=== PATIENT | female | born 1995 | race Caucasian/White ===

== ENCOUNTER 2020-10-20 07:29 | Inpatient (IN) ==
[2020-10-20] MEDS ORDERED: OXYTOCIN 30 UNITS/500 ML BAG IV PRN ×2 (08:46)
--- NOTE | 2020-10-20 08:57 | History & Physical Report ---
Date of Service October 20, 2020 Assessment & Plan (1) Encounter for induction of labor: (2) Post-dates : admit, iv, labs. plan pitocin and arom when able. fhts categ 1. couple aware of plan and desire to proceed. Admission and Anticipated Discharge Date Admission Date: October 20, 2020 History of Present Illness Chief Complaint: induction Primary Care Provider: Kye Cardona 25yo at 40 5/7 wks ega for planned induction. Patient desires induction now. Apparently miller balloon was unable to be placed last pm but thought was cervix was stretched. Patient denies ctx, rom or vb. +FM. PNC c/b 1. prior concern for iugr, followup done at 24wks and aga PNL RH POS, RI, gbs neg OBH: gi GYNH: nl paps, no stds Allergies Allergy/AdvReac Type Severity Reaction Status Date / Time No Known Drug Allergies Allergy Uncoded 09/29/20 09:28 Home Medications Medication Instructions Recorded Confirmed Type albuterol sulfate 90 mcg/actuation 90 mcg INHALATION TID PRN gm 08/10/19 10/19/20 History aerosol inhaler prenat.vits,panfilo,yvo-nkud-mivmc 1 tab PO DAILY 02/26/20 10/20/20 History albuterol 3 mcg INHALATION TID 10/17/20 10/19/20 History ferrous sulfate [iron] 325 mg PO DAILY 10/20/20 10/20/20 History Patient History Medical History (Updated 10/20/20 @ 08:56 by Gay Mitchell MD, FACOG) Asthma Dysmenorrhea Encounter for anatomic survey Overactive bladder Varicella vaccine Surgical History H/O nasal septoplasty S/P tonsillectomy Family History Father Diabetes Mother Kidney disease Denies family history of Ovarian cancer Breast cancer Colorectal cancer Social History Smoking Status: Never smoker Second Hand Exposure: No; Hx Alcohol Use: No Hx Substance Use: No Preferred Language: Maltese Communication Ability: Effective Emergency Department Required: No Beliefs That Will Affect Care: None marital status: Single marital status details: Rafael Dunn (26) [phone] Current Living Situation: Significant Other Current Living Situation Comment: Lives with [place] current occupational status: employed current occupation: clinical coordinator at [employer] Other Information That Helps Us Care for You: No Feels Safe at Home: Yes Safety Concerns: Feels Safe At This Time Assistive Devices: None Review of Systems as per Subjective / HPI Physical Exam Constitutional: WD/WN, vitals as above Respiratory: normal respiratory effort, lungs clear to auscultation Cardiovascular: Rate/Rhythm: regular rate and regular rhythm Gastrointestinal (Abdomen): soft gravid nt Musculoskeletal: +1 edema nontender calves Neurologic: grossly normal Psychiatric: A+Ox3, euthymic affect Genitourinary: OB Exam Abdomen: + vertex and + estimated weight (7-8#) Manual OB Exam: + cervical dilation (2-3), + cervical effacement 80% and + station high OB Exam Monitor Tracing: + external FHT monitor used (135 mod variability), + external uterine monitor used (irreg with irritability), + category I and + normal FHT variability Results & Data ([facility]) Vital Signs (Past 12 Hours) Vital Signs Temp Pulse Resp BP 10/20/20 07:43 97.3 F L 101 H 20 127/79 10/20/20 07:38 101 H 127/79 Coding Level of Care Code None Diagnoses Encounter for induction of labor Z34.90 Post-dates O48.0
[2020-10-20] MEDS: LACTATED RINGER'S 1,000 ML IV PRN ×4 (08:59→20:47)
[2020-10-20 09:04] LABS: Hematocrit (blood only) 38.6 % (37-47); Hemoglobin 12.7 g/dL (12.0-16.0); Mean Corpuscular Hemoglobin 28.8 pg (25-34); Mean Corpuscular Hgb Conc 32.9 g/dL (32-36); Mean Corpuscular Volume 87.5 fL (80-100); Mean Platelet Volume 11.8 fL (7.4-10.4); Platelet Count 123 K/uL (130-400); RDW Coefficient of Variation 17.1 % (11.5-14.5); RDW Standard Deviation 54.9 fL (36.4-46.3); Red Blood Count 4.41 M/uL (4.2-5.4); White Blood Count 9.92 K/uL (4.8-10.8)
[2020-10-20] MEDS ORDERED: fentaNYL citrate 100 MCG/2 ML VIAL ONE ×3 (11:28→21:59)
[2020-10-20] MEDS ORDERED: SODIUM CHLORIDE 0.9% INJ 10 ML VIAL ONE (11:28)
[2020-10-20] MEDS ORDERED: BUPIVACAINE 0.25% 30 ML VIAL ONE (11:28)
[2020-10-20] MEDS ORDERED: ePHEDrine sulfate 50 MG/ML AMP ONE (11:28)
[2020-10-20] MEDS ORDERED: fentaNYL 2MCG/ML ROPIVACAINE 1.25MG/ML 100 ML BAG EPI ONE (11:29)
--- NOTE | 2020-10-20 12:42 | Anesthesiology Consultation ---
Date of Service October 20, 2020 Assessment & Plan (1) Encounter for pre-operative examination: Chart Review Chart Review: Patient NOT seen in Pre Admission Testing and Acceptable Risk for Labor Epidural Consults Requested none ASA ASA2 Proposed Anesthesia Anesthesia Type: Labor Epidural Risk / Benefits Reviewed With: PT / POA / Parent / Guardian, Accepts Plan and Informed Consent Obtained History Height/Weight Height: 5 ft 3 in Weight: 101.151 kg Allergies Allergy/AdvReac Type Severity Reaction Status Date / Time No Known Drug Allergies Allergy Uncoded 09/29/20 09:28 Medications Home Medications Medication Instructions Recorded Confirmed Last Taken albuterol sulfate 90 mcg/actuation 90 mcg INHALATION TID PRN gm 08/10/19 10/19/20 10/19/20 08:00 aerosol inhaler 2 puffs prenat.vits,panfilo,jpx-ruqz-fvgyg 1 tab PO DAILY 02/26/20 10/20/20 10/20/20 albuterol 3 mcg INHALATION TID 10/17/20 10/19/20 10/19/20 08:00 2 puffs ferrous sulfate [iron] 325 mg PO DAILY 10/20/20 10/20/20 10/20/20 Active Medications Generic Name Dose Route Start Last Admin Trade Name Freq PRN Reason Stop Dose Admin Oxytocin 30 units in 500 mls @ 5 mls/hr 10/20/20 08:46 10/20/20 10:10 Pitocin IV 10/22/20 08:45 0.3 units/hr .Q24H PRN 5 mls/hr Labor Induction/Augmentation Titration Protocol 0.3 UNITS/HR Lactated Ringer's 1,000 mls @ 125 mls/hr 10/20/20 08:46 10/20/20 11:59 Lr IV 10/22/20 08:45 125 mls/hr .Q8H PRN Administration L&D Protocol Protocol NPO Date Last Intake of Fluids: 11/16/20 Time Last Intake of Fluids: 12:38 Date Last Intake of Solids: 10/20/20 Time Last Intake of Solids: 07:00 Past Medical History Medical History Asthma Dysmenorrhea Encounter for anatomic survey Overactive bladder Varicella vaccine Exercise / Class Metabolic Activity III < 4 Walking/Shop/Light housework Past Family History Family History Father Diabetes Mother Kidney disease Denies family history of Ovarian cancer Breast cancer Colorectal cancer Past Surgical History Surgical History H/O nasal septoplasty S/P tonsillectomy Past Anesthesia History No Hx of Anesthesia Complications History of PONV No Hx of PONV Social History Smoking Status: Never smoker Hx Alcohol Use: No Hx Substance Use: No Review of Systems Negative for chest pain or shortness of breath. Patient denies history of abnormal bleeding or bleeding disorder. Patient denies active use of anticoagulants other than low dose aspirin. Patient denies numbness, tingling or weakness in lower extremities. Physical Exam Vital Signs Last Vital Signs Temp 36.6 C 10/20/20 11:48 Pulse 105 H 10/20/20 12:32 Resp 18 10/20/20 11:48 BP 118/65 10/20/20 11:48 Pulse Ox 96 10/20/20 12:32 Constitutional + obese (gravid uterus) ENMT Mouth: no TMJ abnormality and oral opening not small Thyromental Distance: > or= 3.5 Finger Breadths Mallampati Class: II Neck normal visual inspection; neck extension not limited Respiratory normal respiratory effort Auscultation: lungs clear to auscultation bilaterally Cardiovascular Rate/Rhythm: regular rate and regular rhythm Heart Sounds: no murmur Neurologic moves all extremities Psychiatric Orientation: alert and oriented x 3 Testing Laboratory Results 10/20/20 08:53
--- NOTE | 2020-10-20 13:22 | Labor Progress Brief Note ---
Date of Service October 20, 2020 Subjective Reason For Note: Routine Evaluation now comfortable with epidural, pit at 5, she had srom for clear fluid earlier this am after pit was started. Assessment & Plan (1) Post-dates : (2) Encounter for induction of labor: good cx change. fhts categ 1. c/w pit, expectant mgmt. Admission and Anticipated Discharge Date Admission Date: October 20, 2020 Physical Exam Constitutional: WD/WN, vitals as above Genitourinary: Manual OB Exam: + cervical dilation 5 cm, + cervical effacement 90% and + station -2 OB Exam Monitor Tracing: + external FHT monitor used (130 mod variability), + external uterine monitor used (q2), + category I and + normal FHT variability pit at 5 Results & Data ([facility]) Vital Signs (Past 12 Hours) Vital Signs Temp Pulse Resp BP Pulse Ox 10/20/20 13:18 126 H 102/57 L 10/20/20 13:17 113 H 97 10/20/20 13:16 121 H 105/53 L 10/20/20 13:14 97 H 114/58 L 10/20/20 13:12 117 H 113/60 96 10/20/20 13:10 105 H 102/56 L 10/20/20 13:08 97 H 110/62 10/20/20 13:07 102 H 97 10/20/20 13:06 96 H 108/60 10/20/20 13:04 85 92/59 L 10/20/20 13:02 94 H 104/55 L 96 10/20/20 13:00 103 H 104/49 L 10/20/20 12:58 85 111/55 L 10/20/20 12:57 83 95 10/20/20 12:55 85 77/47 L 10/20/20 12:53 94 H 74/42 L 94 10/20/20 12:52 86 78/44 L 95 10/20/20 12:47 101 H 94 10/20/20 12:42 111 H 96 10/20/20 12:37 108 H 97 10/20/20 12:32 105 H 96 10/20/20 12:30 100 H 93 10/20/20 12:27 99 H 95 10/20/20 12:24 102 H 92 10/20/20 12:22 98 H 96 10/20/20 12:18 96 H 94 10/20/20 12:17 96 H 97 10/20/20 12:12 98 H 97 10/20/20 12:08 88 94 10/20/20 12:07 79 98 10/20/20 11:48 97.9 F 83 18 118/65 10/20/20 10:46 86 18 118/63 10/20/20 09:48 97.7 F 90 18 119/74 10/20/20 08:58 102 H 18 102/63 10/20/20 07:43 97.3 F L 101 H 20 127/79 10/20/20 07:38 101 H 127/79 Coding Level of Care Code None Diagnoses Post-dates O48.0 Encounter for induction of labor Z34.90
[2020-10-20] MEDS ORDERED: NALOXONE HCL 0.4 MG/1 ML VIAL/CARP IV PRN ×2 (13:51→23:18)
[2020-10-20] MEDS ORDERED: ONDANSETRON INJ 2 MG/ML 2 ML VIAL IV PRN ×2 (13:51→23:18)
[2020-10-20] MEDS ORDERED: fentaNYL 2MCG/ML ROPIVACAINE 1.25MG/ML 100 ML BAG EPI PRN (13:51)
[2020-10-20] MEDS ORDERED: ePHEDrine sulfate 50 MG/ML AMP IV PRN ×2 (13:51→23:18)
[2020-10-20] MEDS ORDERED: NALOXONE HCL 1 MG in SODIUM CHLORIDE 0.9% 1000ML 1,000 ML IV PRN ×2 (13:51→23:18)
[2020-10-20] MEDS ORDERED: diphenhydrAMINE 50 MG/ML VIAL IV PRN ×2 (13:51→23:18)
--- NOTE | 2020-10-20 15:43 | Labor Progress Brief Note ---
Date of Service October 20, 2020 Subjective Reason For Note: Routine Evaluation pt comfortable, recently examined by nurse 6cm, but only 5 2hr ago Assessment & Plan (1) Post-dates : (2) Encounter for induction of labor: c/w pit, reeval cx in about one hr. fhts categ 1. consider iupc if not much progress on next check. Admission and Anticipated Discharge Date Admission Date: October 20, 2020 Physical Exam Constitutional: WD/WN, vitals as above Genitourinary: Manual OB Exam: + cervical dilation 6 cm OB Exam Monitor Tracing: + external FHT monitor used (120 mod variability), + external uterine monitor used (q2), + category I and + normal FHT variability Results & Data ([facility]) Vital Signs (Past 12 Hours) Vital Signs Temp Pulse Resp BP Pulse Ox 10/20/20 15:37 103 H 95 10/20/20 15:34 85 96/54 L 10/20/20 15:32 82 95 10/20/20 15:27 100 H 96 10/20/20 15:22 85 98 10/20/20 15:21 82 93/51 L 10/20/20 15:17 96 H 99 10/20/20 15:12 82 97 10/20/20 15:07 84 98 10/20/20 15:04 78 109/66 10/20/20 15:02 76 97 10/20/20 14:57 84 97 10/20/20 14:52 80 96 10/20/20 14:49 80 118/68 10/20/20 14:47 83 93 10/20/20 14:42 81 98 10/20/20 14:37 80 97 10/20/20 14:34 76 110/64 10/20/20 14:32 77 98 10/20/20 14:27 75 98 10/20/20 14:22 102 H 97 10/20/20 14:20 90 99/56 L 10/20/20 14:17 80 96 10/20/20 14:12 78 97 10/20/20 14:07 77 97 10/20/20 14:05 78 96/55 L 10/20/20 14:02 79 97 10/20/20 13:57 83 98 10/20/20 13:52 82 96 10/20/20 13:47 80 76 L 10/20/20 13:46 77 87 L 10/20/20 13:43 80 20 97/59 L 10/20/20 13:42 80 98 10/20/20 13:38 103 H 20 93/50 L 10/20/20 13:37 96 H 97 10/20/20 13:36 92 H 96/55 L 10/20/20 13:32 105 H 98 10/20/20 13:29 97 H 97/62 L 10/20/20 13:27 87 96 10/20/20 13:22 105 H 97/52 L 95 10/20/20 13:21 102 H 93 10/20/20 13:20 100 H 101/59 L 10/20/20 13:18 126 H 102/57 L 10/20/20 13:17 113 H 97 10/20/20 13:16 121 H 18 105/53 L 10/20/20 13:14 97 H 18 114/58 L 10/20/20 13:12 117 H 18 113/60 96 10/20/20 13:10 105 H 18 102/56 L 10/20/20 13:08 97 H 18 110/62 10/20/20 13:07 102 H 97 10/20/20 13:06 96 H 18 108/60 10/20/20 13:04 85 18 92/59 L 10/20/20 13:02 94 H 20 104/55 L 96 10/20/20 13:00 103 H 20 104/49 L 10/20/20 12:58 85 20 111/55 L 10/20/20 12:57 83 95 10/20/20 12:55 85 20 77/47 L 10/20/20 12:53 94 H 20 74/42 L 94 10/20/20 12:52 86 78/44 L 95 10/20/20 12:47 101 H 94 10/20/20 12:42 111 H 96 10/20/20 12:37 108 H 97 10/20/20 12:32 105 H 96 10/20/20 12:30 100 H 93 10/20/20 12:27 99 H 95 10/20/20 12:24 102 H 92 10/20/20 12:22 98 H 96 10/20/20 12:18 96 H 94 10/20/20 12:17 96 H 97 12/10/20 12:12 98 H 97 10/20/20 12:08 88 94 10/20/20 12:07 79 98 10/20/20 11:48 97.9 F 83 18 118/65 10/20/20 10:46 86 18 118/63 10/20/20 09:48 97.7 F 90 18 119/74 10/20/20 08:58 102 H 18 102/63 10/20/20 07:43 97.3 F L 101 H 20 127/79 10/20/20 07:38 101 H 127/79 Coding Level of Care Code None Diagnoses Post-dates O48.0 Encounter for induction of labor Z34.90
[2020-10-20] MEDS ORDERED: CALCIUM CARBONATE 500 MG CHEWABLE TAB PO STA (15:57)
[2020-10-20] MEDS ORDERED: CALCIUM CARBONATE 500 MG CHEWABLE TAB ONE (15:59)
--- NOTE | 2020-10-20 17:44 | Labor Progress Brief Note ---
Date of Service October 20, 2020 Subjective Reason For Note: Routine Evaluation feeling pressure Assessment & Plan (1) Post-dates : (2) Encounter for induction of labor: good cx change pit at 7, fhts categ 1, anticip soon. Admission and Anticipated Discharge Date Admission Date: October 20, 2020 Physical Exam Constitutional: WD/WN, vitals as above Genitourinary: Manual OB Exam: + cervical dilation (9.5 per nurse) OB Exam Monitor Tracing: + external FHT monitor used (130 mod variability, ), + external uterine monitor used (q2), + category I and + normal FHT variability Results & Data ([facility]) Vital Signs (Past 12 Hours) Vital Signs Temp Pulse Resp BP Pulse Ox 10/20/20 17:22 91 H 97 10/20/20 17:20 90 20 104/59 L 10/20/20 17:17 92 H 99 10/20/20 17:12 96 H 97 10/20/20 17:07 91 H 98 10/20/20 17:04 86 98/57 L 10/20/20 17:02 85 97 10/20/20 16:57 98.1 F 81 20 96 10/20/20 16:52 87 98 10/20/20 16:50 83 109/61 10/20/20 16:47 82 97 10/20/20 16:42 79 96 10/20/20 16:37 83 98 10/20/20 16:34 90 126/76 10/20/20 16:32 86 97 10/20/20 16:27 89 97 10/20/20 16:22 84 96 10/20/20 16:20 88 97/59 L 10/20/20 16:17 85 96 10/20/20 16:12 92 H 96 10/20/20 16:07 82 97 10/20/20 16:03 85 18 94/54 L 10/20/20 16:02 96 H 98 10/20/20 15:57 86 97 10/20/20 15:52 86 96 10/20/20 15:49 85 18 95/54 L 10/20/20 15:47 84 96 10/20/20 15:42 83 95 10/20/20 15:37 103 H 95 10/20/20 15:34 85 96/54 L 10/20/20 15:32 82 95 10/20/20 15:27 100 H 96 10/20/20 15:22 85 98 10/20/20 15:21 82 93/51 L 10/20/20 15:20 98.1 F 16 10/20/20 15:17 96 H 99 10/20/20 15:12 82 97 10/20/20 15:07 84 98 10/20/20 15:04 78 109/66 10/20/20 15:02 76 97 10/20/20 14:57 84 97 10/20/20 14:52 80 96 10/20/20 14:49 80 118/68 10/20/20 14:47 83 93 10/20/20 14:42 81 98 10/20/20 14:37 80 97 10/20/20 14:34 76 110/64 10/20/20 14:32 77 98 10/20/20 14:27 75 98 10/20/20 14:22 102 H 97 10/20/20 14:20 90 99/56 L 10/20/20 14:17 80 96 10/20/20 14:12 78 97 10/20/20 14:07 77 97 10/20/20 14:05 78 96/55 L 10/20/20 14:02 79 97 10/20/20 13:57 83 98 10/20/20 13:52 82 96 10/20/20 13:47 80 76 L 10/20/20 13:46 77 87 L 10/20/20 13:43 80 20 97/59 L 10/20/20 13:42 80 98 10/20/20 13:38 103 H 20 93/50 L 10/20/20 13:37 96 H 97 10/20/20 13:36 92 H 96/55 L 10/20/20 13:32 105 H 98 10/20/20 13:29 97 H 97/62 L 10/20/20 13:27 87 96 10/20/20 13:22 105 H 97/52 L 95 10/20/20 13:21 102 H 93 10/20/20 13:20 100 H 101/59 L 10/20/20 13:18 126 H 102/57 L 10/20/20 13:17 113 H 97 10/20/20 13:16 121 H 18 105/53 L 10/20/20 13:14 97 H 18 114/58 L 10/20/20 13:12 117 H 18 113/60 96 10/20/20 13:10 105 H 18 102/56 L 10/20/20 13:08 97 H 18 110/62 10/20/20 13:07 102 H 97 10/20/20 13:06 96 H 18 108/60 10/20/20 13:04 85 18 92/59 L 10/20/20 13:02 94 H 20 104/55 L 96 10/20/20 13:00 103 H 20 104/49 L 10/20/20 12:58 85 20 111/55 L 10/20/20 12:57 83 95 10/20/20 12:55 85 20 77/47 L 10/20/20 12:53 94 H 20 74/42 L 94 10/20/20 12:52 86 78/44 L 95 10/20/20 12:47 101 H 94 10/20/20 12:42 111 H 96 10/20/20 12:37 108 H 97 10/20/20 12:32 105 H 96 10/20/20 12:30 100 H 93 10/20/20 12:27 99 H 95 10/20/20 12:24 102 H 92 10/20/20 12:22 98 H 96 10/20/20 12:18 96 H 94 10/20/20 12:17 96 H 97 10/20/20 12:12 98 H 97 10/20/20 12:08 88 94 10/20/20 12:07 79 98 10/20/20 11:48 97.9 F 83 18 118/65 10/20/20 10:46 86 18 118/63 10/20/20 09:48 97.7 F 90 18 119/74 10/20/20 08:58 102 H 18 102/63 10/20/20 07:43 97.3 F L 101 H 20 127/79 10/20/20 07:38 101 H 127/79 Coding Level of Care Code None Diagnoses Post-dates O48.0 Encounter for induction of labor Z34.90
[2020-10-20] MEDS ORDERED: CITRIC ACID/SODIUM CITRATE 15 ML UDC PO STA (20:29)
[2020-10-20] MEDS ORDERED: CITRIC ACID/SODIUM CITRATE 15 ML UDC ONE (20:30)
--- NOTE | 2020-10-20 21:14 | Labor Progress Brief Note ---
Date of Service October 20, 2020 Subjective Reason For Note: Requested By RN and Requested By Patient pt exhausted and does not want to push Assessment & Plan (1) Post-dates : (2) Encounter for induction of labor: failure to descend and maternal exhaustion. pt declines attempt at assistance with vacuum. she does not want to push. she wants c/s. reviewed risks, alt and complications. Admission and Anticipated Discharge Date Admission Date: October 20, 2020 Physical Exam Constitutional: WD/WN, vitals as above Genitourinary: Manual OB Exam: + cervical dilation 10 cm, + cervical effacement 100% and + station + 2 OB Exam Monitor Tracing: + external FHT monitor used (155 mod variability), + external uterine monitor used (q3), + category I and + normal FHT variability pt does not want to push Results & Data ([facility]) Vital Signs (Past 12 Hours) Vital Signs Temp Pulse Resp BP Pulse Ox 10/20/20 21:10 97 H 88 L 10/20/20 21:07 94 H 98 10/20/20 21:02 89 100 10/20/20 20:58 102 H 83 L 10/20/20 20:57 91 H 99 10/20/20 20:52 83 100 10/20/20 20:47 82 99 10/20/20 20:46 94 H 82 L 10/20/20 20:42 98 H 90 10/20/20 20:37 104 H 97 10/20/20 20:32 89 92 10/20/20 20:30 97.9 F 18 10/20/20 20:27 83 92 10/20/20 20:22 104 H 96 10/20/20 20:17 80 97 10/20/20 20:13 90 80 L 10/20/20 20:12 82 97 10/20/20 20:11 81 112/66 10/20/20 20:10 18 10/20/20 20:07 83 95 10/20/20 20:03 108 H 84 L 10/20/20 20:02 80 94 10/20/20 19:58 94 H 88 L 10/20/20 19:57 93 H 90 10/20/20 19:52 87 94 10/20/20 19:51 89 82 L 10/20/20 19:47 92 H 94 10/20/20 19:46 98.1 F 18 10/20/20 19:42 109 H 96 10/20/20 19:22 108 H 92 10/20/20 19:18 102 H 98/57 L 10/20/20 19:17 94 H 96 10/20/20 19:16 97.7 F 18 10/20/20 19:12 134 H 94 10/20/20 19:07 100 H 95 10/20/20 19:02 88 96 10/20/20 19:00 111 H 89 L 10/20/20 18:57 108 H 96 10/20/20 18:52 98 H 97 10/20/20 18:50 93 H 113/72 10/20/20 18:49 118 H 83 L 10/20/20 18:47 105 H 95 10/20/20 18:42 97 H 79 L 10/20/20 18:37 92 H 96 10/20/20 18:32 102 H 86 L 10/20/20 18:27 101 H 97 10/20/20 18:26 120 H 86 L 10/20/20 18:22 116 H 97 10/20/20 18:17 101 H 97 10/20/20 18:12 99 H 97 10/20/20 18:07 100 H 96 10/20/20 18:05 100 H 20 103/64 10/20/20 18:02 100 H 97 10/20/20 17:57 119 H 97 10/20/20 17:52 94 H 97 10/20/20 17:50 88 20 127/73 10/20/20 17:47 94 H 98 10/20/20 17:42 96 H 98 10/20/20 17:37 88 97 10/20/20 17:35 94 H 101/58 L 10/20/20 17:32 93 H 100 10/20/20 17:27 84 98 10/20/20 17:22 91 H 97 10/20/20 17:20 90 20 104/59 L 10/20/20 17:17 92 H 99 10/20/20 17:12 96 H 97 10/20/20 17:07 91 H 98 10/20/20 17:04 86 98/57 L 10/20/20 17:02 85 97 10/20/20 16:57 98.1 F 81 20 96 10/20/20 16:52 87 98 10/20/20 16:50 83 109/61 10/20/20 16:47 82 97 10/20/20 16:42 79 96 10/20/20 16:37 83 98 10/20/20 16:34 90 126/76 10/20/20 16:32 86 97 10/20/20 16:27 89 97 10/20/20 16:22 84 96 10/20/20 16:20 88 97/59 L 10/20/20 16:17 85 96 10/20/20 16:12 92 H 96 10/20/20 16:07 82 97 10/20/20 16:03 85 18 94/54 L 10/20/20 16:02 96 H 98 10/20/20 15:57 86 97 10/20/20 15:52 86 96 10/20/20 15:49 85 18 95/54 L 10/20/20 15:47 84 96 10/20/20 15:42 83 95 10/20/20 15:37 103 H 95 10/20/20 15:34 85 96/54 L 10/20/20 15:32 82 95 10/20/20 15:27 100 H 96 10/20/20 15:22 85 98 10/20/20 15:21 82 93/51 L 10/20/20 15:20 98.1 F 16 10/20/20 15:17 96 H 99 10/20/20 15:12 82 97 10/20/20 15:07 84 98 10/20/20 15:04 78 109/66 10/20/20 15:02 76 97 10/20/20 14:57 84 97 10/20/20 14:52 80 96 10/20/20 14:49 80 118/68 10/20/20 14:47 83 93 10/20/20 14:42 81 98 10/20/20 14:37 80 97 10/20/20 14:34 76 110/64 10/20/20 14:32 77 98 10/20/20 14:27 75 98 10/20/20 14:22 102 H 97 10/20/20 14:20 90 99/56 L 10/20/20 14:17 80 96 10/20/20 14:12 78 97 10/20/20 14:07 77 97 10/20/20 14:05 78 96/55 L 10/20/20 14:02 79 97 10/20/20 13:57 83 98 10/20/20 13:52 82 96 10/20/20 13:47 80 76 L 10/20/20 13:46 77 87 L 10/20/20 13:43 80 20 97/59 L 10/20/20 13:42 80 98 10/20/20 13:38 103 H 20 93/50 L 10/20/20 13:37 96 H 97 10/20/20 13:36 92 H 96/55 L 10/20/20 13:32 105 H 98 10/20/20 13:29 97 H 97/62 L 10/20/20 13:27 87 96 10/20/20 13:22 105 H 97/52 L 95 10/20/20 13:21 102 H 93 10/20/20 13:20 100 H 101/59 L 10/20/20 13:18 126 H 102/57 L 10/20/20 13:17 113 H 97 10/20/20 13:16 121 H 18 105/53 L 10/20/20 13:14 97 H 18 114/58 L 10/20/20 13:12 117 H 18 113/60 96 10/20/20 13:10 105 H 18 102/56 L 10/20/20 13:08 97 H 18 110/62 10/20/20 13:07 102 H 97 10/20/20 13:06 96 H 18 108/60 10/20/20 13:04 85 18 92/59 L 10/20/20 13:02 94 H 20 104/55 L 96 10/20/20 13:00 103 H 20 104/49 L 10/20/20 12:58 85 20 111/55 L 10/20/20 12:57 83 95 10/20/20 12:55 85 20 77/47 L 10/20/20 12:53 94 H 20 74/42 L 94 10/20/20 12:52 86 78/44 L 95 10/20/20 12:47 101 H 94 10/20/20 12:42 111 H 96 10/20/20 12:37 108 H 97 10/20/20 12:32 105 H 96 10/20/20 12:30 100 H 93 10/20/20 12:27 99 H 95 10/20/20 12:24 102 H 92 10/20/20 12:22 98 H 96 10/20/20 12:18 96 H 94 10/20/20 12:17 96 H 97 10/20/20 12:12 98 H 97 10/20/20 12:08 88 94 10/20/20 12:07 79 98 10/20/20 11:48 97.9 F 83 18 118/65 10/20/20 10:46 86 18 118/63 10/20/20 09:48 97.7 F 90 18 119/74 Coding Level of Care Code None Diagnoses Post-dates O48.0 Encounter for induction of labor Z34.90
[2020-10-20] MEDS ORDERED: CITRIC ACID/SODIUM CITRATE 15 ML UDC PO ONE (21:30)
[2020-10-20] MEDS ORDERED: LIDOCAINE/EPINEPHRINE 2% 1:200,000 20 ML SDV ONE (21:32)
[2020-10-20] MEDS ORDERED: ONDANSETRON INJ 2 MG/ML 2 ML VIAL ONE (21:56)
[2020-10-20] MEDS ORDERED: OXYTOCIN 10 UNITS/ML VIAL ONE ×4 (22:12→22:33)
[2020-10-20] MEDS ORDERED: PROMETHAZINE HCL INJ 25 MG/ML 1 ML VIAL ONE (22:25)
[2020-10-20] MEDS ORDERED: MoRPHine SULFATE PF 1 MG/ML 10 ML AMP/VIAL ONE (22:25)
[2020-10-20] MEDS ORDERED: SODIUM CHLORIDE 0.9% 250 ML IV PRN (22:28)
[2020-10-20] MEDS ORDERED: ePHEDrine sulfate 50 MG/ML SYR ONE (22:43)
--- NOTE | 2020-10-20 22:52 | Post Operative Brief Note ---
PG Immediate Post Op with CF Date of Surgery October 20, 2020 Pre & Post Diagnosis Operation Date: 10/20/20 21:30 <No data on this case meets the specified criteria> 40+wk iup induction of labor failure to descend maternal exhaustion I identified the patient and participated in the time-out.: Yes Procedure Operation Date: 10/20/20 21:30 <No data on this case meets the specified criteria> Primary Low Transverse Section Surgeon Gay Mitchell MD, FACOG Java Web Developer RN Estimated Blood Loss 800 Findings Consistent with Post-Op Diagnosis (normal uterus tubes and ovaries bilaterally. viable male apgars 2, 9. small superficial bleeding of left fallopian tube stiched for hemostasis. hysterotomy with left extension toward cervix) Fluids 1450 Specimens Specimen Description: cord blood cord gases Drains Dubon Catheter Anesthesia Type Labor Epidural Complications none Disposition Accompanied Patient To Recovery: No Disposition: L&D
--- NOTE | 2020-10-20 23:15 | Operative Report ---
PG Post Operative Report Pre & Post Diagnosis Operation Date: 10/20/20 21:30 <No data on this case meets the specified criteria> 1. Postdates induction 2. Failure to descend 3. Maternal exhaustion I identified the patient and participated in the time-out.: Yes Procedure Operation Date: 10/20/20 21:30 <No data on this case meets the specified criteria> Primary Low Transverse Section Surgeon Gay Mitchell MD, FACOG Shift Supervisor [employer] RN Estimated Blood Loss 800 Findings Consistent with Post-Op Diagnosis (normal uterus tubes and ovaries bilaterally. viable male infant apgars 2, 9. small superficial bleeding of left fallopian tube stiched for hemostasis. hysterotomy with left extension toward cervix) Fluids 1450 Specimens cord blood and gases Drains miller Anesthesia Type Labor Epidural Complications none Disposition Accompanied Patient To Recovery: No Disposition: L&D Indications 25yo at 40+wks egjunior presented to L&D for planned induction. She was given pitocin and had spontaneous rupture of membranes. She received an epidural for pain management. She dilated to complete and pushed for about 3hrs. She refused to continue to push and wanted to proceed with section. Given her exam findings she was offered attempt at vacuum assistance but after review of risks, benefits and complications including need to continue to have effective pushing, she declined and wanted to proceed with section. Description of Procedure The patient was taken to the operating room and identified. Patient's epidural was bolused and she was placed in the supine position with a leftward tilt on the operating table and prepped and draped in the usual sterile fashion. A milelr catheter had already been placed. The knife was used to create a Pfannensteil skin incision that was carried down to the underlying layer of fascia. The fascia was nicked in the midline and this opening was extended laterally using Brambila scissors. Billy clamps were placed on the superior and inferior aspect of the fascial incision tenting it upward and the underlying rectus muscles were dissected off the overlying fascia both sharply and bluntly using Brambila scissors. The rectus muscles were bluntly in the midline. The peritoneal cavity was bluntly entered into. This opening was stretched. The bladder blade was placed. The vesicouterine peritoneum was elevated and opened up into and the bladder flap was created digitally and bladder blade was replaced. The knife was used to create a hysterotomy and this opening was stretched. The operators hand was placed through the hysterotomy and the bladder blade was removed. The head was elevated and flexed and with fundal pressure the head was delivered. Loose nuchal noted and delivered through. The shoulders and body were rapidly delivered. The cord was clamped and cut and the 's mouth and nares were bulb suction. The was handed off to the awaiting pediatricians. Cord blood and cord gases were obtained. The placenta was manually expressed. The uterus was exteriorized and cleared of all clots and debris. Dilute IV Pitocin was begun. The uterine tone was improving at the fundus but the DANIEL was boggy. IM methergine was injected into uterine muscle. The hysterotomy was closed in a running interlocking fashion using 0 Vicryl followed by a second imbricating layer of 0 Vicryl. There was an extension of hysterotomy to left lower uterus that was repaired with running interlocking suture of 0 vicryl , hemostasis was inadequate and required 2 figure of eight sutures of 2-0 vicryl for excellent hemostasis. There was bleeding site on the serosal surface of the left distal fallopian tube. It was stiched with an interrupted suture of 2-0 vicryl in a superficial fashion for excellent hemostasis. The uterus was returned to the abdomen. The gutters were cleared of all clots and debris. The hysterotomy was reinspected and noted to be hemostatic. The extension of hysterotomy was inspected and was hemostatic but raw and so crystal 3g placed over area. The fascia was then closed in running fashion using 0 Vicryl. The subcutaneous fat was copiously irrigated and reapproximated using 2-0 chromic. The skin was closed in a subcuticular fashion using 4-0 Vicryl. At this point the procedure was terminated. The patient was transferred to the recovery room in stable condition. All sponge, lap and needle counts are correct x2. I attest to the content of the Intraoperative Record and any orders documented therein. Any exceptions are noted below. OB Procedure charges OB Charges 07989 C/S
[2020-10-20 23:17] LABS: Hematocrit (blood only) 33.1 % (37-47); Hemoglobin 10.9 g/dL (12.0-16.0)
[2020-10-20] MEDS ORDERED: MAGNESIUM HYDROXIDE SUSP 30 ML UDC PO PRN (23:17)
[2020-10-20] MEDS ORDERED: BENZOCAINE 20% AER SPR 82.5 GM CAN EXT PRN (23:17)
[2020-10-20] MEDS ORDERED: LACTATED RINGER'S 1,000 ML IV SCH (23:17)
[2020-10-20] MEDS ORDERED: SUPERCREAM 0.870% 15 GM JAR EXT PRN (23:17)
[2020-10-20] MEDS ORDERED: HYDROCORTISONE ACETATE 25 MG SUPP PR PRN (23:17)
[2020-10-20] MEDS ORDERED: DIPHTHERIA/TETANUS/PERTUSSIS 0.5 ML SYR/VIAL IM ONE (23:17)
[2020-10-20] MEDS ORDERED: MoRPHine SULFATE PF 1 MG/ML 10 ML AMP/VIAL INT SPINAL ONE (23:18)
[2020-10-20] MEDS ORDERED: ACETAMINOPHEN 1000 MG/100 ML IV IV PRN (23:18)
[2020-10-20] MEDS ORDERED: HYDROmorphone INJ 0.5 MG/0.5 ML SYR IV PRN (23:18)
[2020-10-20] MEDS ORDERED: NALOXONE HCL 0.08 MG in SYRINGE 1.8 ML IV PRN (23:18)
[2020-10-20] MEDS ORDERED: KETOROLAC 30 MG/ML VIAL IV PRN (23:18)
[2020-10-20] MEDS ORDERED: LACTATED RINGER'S 500 ML IV PRN (23:18)
[2020-10-20] MEDS ORDERED: SODIUM CHLORIDE 0.9% 1000ML 1,000 ML IV SCH (23:30)
[2020-10-20] MEDS ORDERED: DC INTRASPINAL MORPHINE SCH (23:30)
[2020-10-20] MEDS ORDERED: NO NARCOTICS OR SEDATIVES SCH (23:30)
--- NOTE | 2020-10-20 23:31 | Anesthesia Procedure Note ---
Date of Service October 20, 2020 Anesthesia Post Epidural Note Vital Signs Vital Signs: Temp Pulse Resp BP Pulse Ox 36.6 C 91 H 18 167/65 H 93 10/20/20 20:30 10/20/20 23:28 10/20/20 20:30 10/20/20 23:27 10/20/20 23:28 Pain Intensity Bilateral Abdomen: Pain Intensity: 0 Notes Mental Status: alert / awake / arousable and participated in evaluation Nausea / Vomiting: adequately controlled Pain: adequately controlled Airway Patency, RR, SpO2: stable & adequate BP & HR: stable & adequate Hydration State: stable & adequate Neuraxial Anesthesia: was administered and sensory block is resolving Anesthetic Complications: no major complications apparent and Pt Satisfied with anesthetic care Epidural: Removed without complications and With tip intact Notes: Pulled in OR after completion of . site clean, dry and intact without signs of bleeding or bruising.
[2020-10-20 23:46] LABS: Base Excess Cord Arterial Bld -0.4 mEq/L (-9-1.8); Base Excess Cord Venous Blood -1.3 mEq/L (-7.7-1.9); CO2 Cord Arterial Blood 62 mmHg (39.1-73.5); Cord Venous Blood HCO3 25 mmol/L (18.4-26.8); Cord Venous Blood PCO2 50 mmHg (30.4-57.2); Cord Venous Blood PO2 24 mmHg (14.1-43.3); Cord Venous Blood pH 7.32 (7.20-7.44); HCO3 Cord Arterial Blood 28 mmol/L (19.7-28.5); O2 Saturation Cord Venous Bld < 60.0 % (<68); PO2 Cord Arterial Blood 16 mmHg (4.1-31.7); pH Cord Arterial Blood 7.27 (7.1-7.38)
[2020-10-20 23:47] LABS: Oxygen Sat Cord Arterial Blood < 60.0 % (<60)
--- NOTE | 2020-10-20 23:58 | Anesthesiology Progress Note ---
Date of Service October 20, 2020 Anesthesia Post Procedure Vital Signs Vital Signs: Temp Pulse Pulse Resp BP BP Pulse Ox 10/20/20 23:55 94 H 89 L 10/20/20 23:53 86 97 10/20/20 23:49 90 145/67 H 10/20/20 23:48 97 H 92 10/20/20 23:43 91 H 97 10/20/20 23:40 96 H 138/63 10/20/20 23:39 98 H 86 L 10/20/20 23:38 95 H 93 10/20/20 23:34 93 H 91 10/20/20 23:33 91 H 96 10/20/20 23:30 36.4 C L 91 H 20 93 10/20/20 23:28 91 H 93 10/20/20 23:27 89 167/65 H 93 10/20/20 23:23 88 92 10/20/20 23:22 88 100 10/20/20 23:20 36.4 C L 88 20 167/65 H 100 10/20/20 23:17 93 H 98 10/20/20 23:12 99 H 97 10/20/20 23:07 96 H 98 10/20/20 23:06 36.5 C 94 H 20 90 10/20/20 23:05 95 H 116/53 L 10/20/20 23:02 100 H 96 10/20/20 21:43 102 H 132/70 10/20/20 21:42 104 H 92 10/20/20 21:41 102 H 86 L 10/20/20 21:37 87 96 10/20/20 21:32 100 H 96 10/20/20 21:27 100 H 97 10/20/20 21:22 101 H 95 10/20/20 21:18 96 H 85 L 10/20/20 21:17 96 H 97 10/20/20 21:12 94 H 99 10/20/20 21:10 97 H 88 L 10/20/20 21:07 94 H 98 10/20/20 21:02 89 100 10/20/20 20:58 102 H 83 L 10/20/20 20:57 91 H 99 10/20/20 20:52 83 100 10/20/20 20:47 82 99 10/20/20 20:46 94 H 82 L 12/10/20 20:42 98 H 90 10/20/20 20:37 104 H 97 10/20/20 20:32 89 92 10/20/20 20:30 36.6 C 18 10/20/20 20:27 83 92 10/20/20 20:22 104 H 96 10/20/20 20:17 80 97 10/20/20 20:13 90 80 L 10/20/20 20:12 82 97 10/20/20 20:11 81 112/66 10/20/20 20:10 18 10/20/20 20:07 83 95 10/20/20 20:03 108 H 84 L 10/20/20 20:02 80 94 10/20/20 19:58 94 H 88 L 10/20/20 19:57 93 H 90 10/20/20 19:52 87 94 10/20/20 19:51 89 82 L 10/20/20 19:47 92 H 94 10/20/20 19:46 36.7 C 18 10/20/20 19:42 109 H 96 10/20/20 19:22 108 H 92 10/20/20 19:18 102 H 98/57 L 10/20/20 19:17 94 H 96 10/20/20 19:16 36.5 C 18 10/20/20 19:12 134 H 94 10/20/20 19:07 100 H 95 10/20/20 19:02 88 96 10/20/20 19:00 111 H 89 L 10/20/20 18:57 108 H 96 10/20/20 18:52 98 H 97 10/20/20 18:50 93 H 113/72 10/20/20 18:49 118 H 83 L 10/20/20 18:47 105 H 95 10/20/20 18:42 97 H 79 L 10/20/20 18:37 92 H 96 10/20/20 18:32 102 H 86 L 10/20/20 18:27 101 H 97 10/20/20 18:26 120 H 86 L 10/20/20 18:22 116 H 97 10/20/20 18:17 101 H 97 10/20/20 18:12 99 H 97 10/20/20 18:07 100 H 96 10/20/20 18:05 100 H 20 103/64 10/20/20 18:02 100 H 97 10/20/20 17:57 119 H 97 10/20/20 17:52 94 H 97 10/20/20 17:50 88 20 127/73 10/20/20 17:47 94 H 98 10/20/20 17:42 96 H 98 10/20/20 17:37 88 97 10/20/20 17:35 94 H 101/58 L 10/20/20 17:32 93 H 100 10/20/20 17:27 84 98 10/20/20 17:22 91 H 97 10/20/20 17:20 90 20 104/59 L 10/20/20 17:17 92 H 99 10/20/20 17:12 96 H 97 10/20/20 17:07 91 H 98 10/20/20 17:04 86 98/57 L 10/20/20 17:02 85 97 10/20/20 16:57 36.7 C 81 20 96 10/20/20 16:52 87 98 10/20/20 16:50 83 109/61 10/20/20 16:47 82 97 10/20/20 16:42 79 96 10/20/20 16:37 83 98 10/20/20 16:34 90 126/76 10/20/20 16:32 86 97 10/20/20 16:27 89 97 10/20/20 16:22 84 96 10/20/20 16:20 88 97/59 L 10/20/20 16:17 85 96 10/20/20 16:12 92 H 96 10/20/20 16:07 82 97 10/20/20 16:03 85 18 94/54 L 10/20/20 16:02 96 H 98 10/20/20 15:57 86 97 10/20/20 15:52 86 96 10/20/20 15:49 85 18 95/54 L 10/20/20 15:47 84 96 10/20/20 15:42 83 95 10/20/20 15:37 103 H 95 10/20/20 15:34 85 96/54 L 10/20/20 15:32 82 95 10/20/20 15:27 100 H 96 10/20/20 15:22 85 98 10/20/20 15:21 82 93/51 L 10/20/20 15:20 36.7 C 16 10/20/20 15:17 96 H 99 10/20/20 15:12 82 97 10/20/20 15:07 84 98 10/20/20 15:04 78 109/66 10/20/20 15:02 76 97 10/20/20 14:57 84 97 10/20/20 14:52 80 96 10/20/20 14:49 80 118/68 10/20/20 14:47 83 93 10/20/20 14:42 81 98 10/20/20 14:37 80 97 10/20/20 14:34 76 110/64 10/20/20 14:32 77 98 10/20/20 14:27 75 98 10/20/20 14:22 102 H 97 10/20/20 14:20 90 99/56 L 10/20/20 14:17 80 96 10/20/20 14:12 78 97 10/20/20 14:07 77 97 10/20/20 14:05 78 96/55 L 10/20/20 14:02 79 97 10/20/20 13:57 83 98 10/20/20 13:52 82 96 10/20/20 13:47 80 76 L 10/20/20 13:46 77 87 L 10/20/20 13:43 80 20 97/59 L 10/20/20 13:42 80 98 10/20/20 13:38 103 H 20 93/50 L 10/20/20 13:37 96 H 97 10/20/20 13:36 92 H 96/55 L 10/20/20 13:32 105 H 98 10/20/20 13:29 97 H 97/62 L 10/20/20 13:27 87 96 10/20/20 13:22 105 H 97/52 L 95 10/20/20 13:21 102 H 93 10/20/20 13:20 100 H 101/59 L 10/20/20 13:18 126 H 102/57 L 10/20/20 13:17 113 H 97 10/20/20 13:16 121 H 18 105/53 L 10/20/20 13:14 97 H 18 114/58 L 10/20/20 13:12 117 H 18 113/60 96 10/20/20 13:10 105 H 18 102/56 L 10/20/20 13:08 97 H 18 110/62 10/20/20 13:07 102 H 97 10/20/20 13:06 96 H 18 108/60 10/20/20 13:04 85 18 92/59 L 10/20/20 13:02 94 H 20 104/55 L 96 10/20/20 13:00 103 H 20 104/49 L 10/20/20 12:58 85 20 111/55 L 10/20/20 12:57 83 95 10/20/20 12:55 85 20 77/47 L 10/20/20 12:53 94 H 20 74/42 L 94 10/20/20 12:52 86 78/44 L 95 10/20/20 12:47 101 H 94 10/20/20 12:42 111 H 96 10/20/20 12:37 108 H 97 10/20/20 12:32 105 H 96 10/20/20 12:30 100 H 93 10/20/20 12:27 99 H 95 10/20/20 12:24 102 H 92 10/20/20 12:22 98 H 96 10/20/20 12:18 96 H 94 10/20/20 12:17 96 H 97 10/20/20 12:12 98 H 97 10/20/20 12:08 88 94 10/20/20 12:07 79 98 10/20/20 11:48 36.6 C 83 18 118/65 10/20/20 10:46 86 18 118/63 10/20/20 09:48 36.5 C 90 18 119/74 10/20/20 08:58 102 H 18 102/63 10/20/20 07:43 36.3 C L 101 H 20 127/79 10/20/20 07:38 101 H 127/79 Pain Intensity Bilateral Abdomen: Pain Intensity: 0 Transfer of Care Handoff Completed per policy Notes Mental Status: alert / awake / arousable and participated in evaluation Nausea / Vomiting: adequately controlled Pain: adequately controlled Airway Patency, RR, SpO2: stable & adequate BP & HR: stable & adequate Hydration State: stable & adequate Neuraxial Anesthesia: was administered and sensory block is resolving Anesthetic Complications: no major complications apparent and Pt Satisfied with anesthetic care
[2020-10-21] MEDS: OXYTOCIN 20 UNITS in LACTATED RINGER'S 1,000 ML IV SCH ×2 (00:25→08:21)
[2020-10-21] MEDS: KETOROLAC 30 MG/ML VIAL IV PRN ×2 (01:04→17:29)
[2020-10-21] MEDS ORDERED: METHYLERGONOVINE MALEATE 0.2 MG/ML AMP IM STA (03:18)
--- NOTE | 2020-10-21 06:48 | Obstetrical Progress Note ---
Date of Service <Holden Serrano MD - Last Filed: 10/21/20 07:43> October 21, 2020 Assessment & Plan <Holden Serrano MD - Last Filed: 10/21/20 07:43> (1) Encounter for induction of labor: Nava Arzola is a 25 y/o female on POD#1 s/p delivery at 40+ weeks. * Patient feels well today; eating well, voiding well, ambulating well * Pain well-controlled with oxycodone/acetaminophen 2 tabs q4h prn * Routine postcesarean care: OOB, ambulation, diet progression as tolerated * After discharge, will have six-week follow-up with Dr. Mitchell Subjective <Holden Serrano MD - Last Filed: 10/21/20 07:43> Ambulation: ambulating normally Voiding: no voiding problems Passing Gas:: Yes Diet Tolerance:: regular diet Lochia:: Small Nava Arzola is a 25 y/o female on POD#1 s/p delivery at 40+ weeks. She reports feeling very tired this morning. Mild abdominal cramping and 3/10 pain well managed on analgesics. Has not eaten yet nor been out of bed. Not yet passing gas and no bowel movement. Has persistent lochia, unsure of any improvement this morning. Review of Systems Denies fever or chills. Denies shortness of breath or cough. Denies chest pain. Denies breast pain. Denies dysuria. Denies leg pain or leg swelling. Denies headache or changes in vision. Physical Exam <Holden Serrano MD - Last Filed: 10/21/20 07:43> General: alert, oriented, no acute distress Cardiac: regular rate and rhythm, no murmurs appreciated Respiratory: lungs clear to auscultation bilaterally a/p, no wheezes/rales/rhonchi, no increased work of breathing, symmetrical chest rise, no respiratory distress Abdomen: soft, minimally tender, nondistended, bowel sounds present, surgical incision clean, dry, and intact Uterus: uterine fundus firm, palpable 3 cm below umbilicus Lower extremities: no lower extremity edema or swelling, no deep calf pain, Luz Marina's negative bilaterally Results & Data ([facility]) <Holden Serrano MD - Last Filed: 10/21/20 07:43> Vital Signs (Past 12 Hours) Vital Signs Temp Pulse Pulse Resp BP BP Pulse Ox 10/21/20 06:08 120/76 10/21/20 04:41 18 91 10/21/20 03:53 18 98 10/21/20 02:45 37.4 C 105 H 18 122/74 94 10/21/20 01:30 36.6 C 96 H 18 128/83 96 10/21/20 01:01 100 H 112/58 L 10/21/20 01:00 36.8 C 100 H 18 112/58 L 94 10/21/20 00:49 89 121/75 10/21/20 00:48 95 H 94 10/21/20 00:47 101 H 88 L 10/21/20 00:43 98 H 94 10/21/20 00:42 97 H 20 117/77 92 10/21/20 00:40 98 H 117/77 10/21/20 00:38 96 H 93 10/21/20 00:36 90 90 10/21/20 00:33 95 H 95 10/21/20 00:29 95 H 166/82 H 10/21/20 00:28 94 H 93 10/21/20 00:23 98 H 81 L 10/21/20 00:22 90 89 L 10/21/20 00:19 90 168/81 H 10/21/20 00:18 103 H 91 10/21/20 00:16 93 H 88 L 10/21/20 00:14 90 165/83 H 10/21/20 00:13 89 95 10/21/20 00:09 93 H 158/82 H 10/21/20 00:08 94 H 96 10/21/20 00:06 104 H 91 10/21/20 00:03 98 H 100 10/21/20 00:01 100 H 88 L 10/21/20 00:00 36.6 C 150/70 H 95 10/20/20 23:59 89 150/70 H 10/20/20 23:58 95 H 95 10/20/20 23:55 94 H 89 L 10/20/20 23:53 86 97 10/20/20 23:50 36.7 C 90 20 145/67 H 90 10/20/20 23:49 90 145/67 H 12/10/20 23:48 97 H 92 10/20/20 23:43 91 H 97 10/20/20 23:40 36.7 C 96 H 96 H 20 138/63 138/63 98 10/20/20 23:39 98 H 86 L 10/20/20 23:38 95 H 93 10/20/20 23:34 93 H 91 10/20/20 23:33 91 H 96 10/20/20 23:30 36.4 C L 91 H 20 93 10/20/20 23:28 91 H 93 10/20/20 23:27 89 167/65 H 93 10/20/20 23:23 88 92 10/20/20 23:22 88 100 10/20/20 23:20 36.4 C L 88 20 167/65 H 100 10/20/20 23:17 93 H 98 10/20/20 23:12 99 H 97 10/20/20 23:07 96 H 98 10/20/20 23:06 36.5 C 94 H 20 90 10/20/20 23:05 95 H 116/53 L 10/20/20 23:02 100 H 96 10/20/20 21:43 102 H 132/70 10/20/20 21:42 104 H 92 10/20/20 21:41 102 H 86 L 10/20/20 21:37 87 96 10/20/20 21:32 100 H 96 10/20/20 21:27 100 H 97 10/20/20 21:22 101 H 95 10/20/20 21:18 96 H 85 L 10/20/20 21:17 96 H 97 10/20/20 21:12 94 H 99 10/20/20 21:10 97 H 88 L 10/20/20 21:07 94 H 98 10/20/20 21:02 89 100 10/20/20 20:58 102 H 83 L 10/20/20 20:57 91 H 99 10/20/20 20:52 83 100 10/20/20 20:47 82 99 10/20/20 20:46 94 H 82 L 10/20/20 20:42 98 H 90 10/20/20 20:37 104 H 97 10/20/20 20:32 89 92 10/20/20 20:30 36.6 C 18 10/20/20 20:27 83 92 10/20/20 20:22 104 H 96 10/20/20 20:17 80 97 10/20/20 20:13 90 80 L 10/20/20 20:12 82 97 10/20/20 20:11 81 112/66 10/20/20 20:10 18 10/20/20 20:07 83 95 10/20/20 20:03 108 H 84 L 10/20/20 20:02 80 94 10/20/20 19:58 94 H 88 L 10/20/20 19:57 93 H 90 10/20/20 19:52 87 94 10/20/20 19:51 89 82 L 10/20/20 19:47 92 H 94 10/20/20 19:46 36.7 C 18 10/20/20 19:42 109 H 96 10/20/20 19:22 108 H 92 10/20/20 19:18 102 H 98/57 L 10/20/20 19:17 94 H 96 10/20/20 19:16 36.5 C 18 10/20/20 19:12 134 H 94 10/20/20 19:07 100 H 95 10/20/20 19:02 88 96 10/20/20 19:00 111 H 89 L 10/20/20 18:57 108 H 96 10/20/20 18:52 98 H 97 10/20/20 18:50 93 H 113/72 10/20/20 18:49 118 H 83 L 10/20/20 18:47 105 H 95 <Gay Mitchell MD, FACOG - Last Filed: 10/21/20 07:58> Co-Signing Physician Notes Resident Physician Supervision Note: I was present with Dr. Serrano during the history and exam. I discussed the case with the resident and agree with the findings and plan as documented in the note. Any exceptions or clarifications are listed here: resident note is conflicting. pt is postop several hours, so not out of bed, no flatus, miller in place. no cp/sob/n/v. ff 2down, tachy but making good urine, hgb stable. no evid of ongoing bleeding. plan routine pp care. . take dressing off in am. ambulate adv diet and remove miller per duramorph orders. Documented By: Gay Mitchell MD, FACOG Resident Activity Tracking <Holden Serrano MD - Last Filed: 10/21/20 07:43> Resident Involvement: Resident Care Provided Care Provided: OB Delivery
[2020-10-21 07:07] LABS: Hematocrit (blood only) 30.2 % (37-47); Mean Corpuscular Hgb Conc 33.1 g/dL (32-36); Mean Corpuscular Volume 87.5 fL (80-100); RDW Coefficient of Variation 17.2 % (11.5-14.5); Red Blood Count 3.45 M/uL (4.2-5.4); White Blood Count 10.49 K/uL (4.8-10.8)
[2020-10-21 07:28] LABS: Basophils # (auto) 0.01 K/uL (0-0.2); Basophils % (auto) 0.1 %; Eosinophils # (auto) 0.02 K/uL (0-0.5); Eosinophils % (auto) 0.2 %; Immature Granulocytes # (auto) 0.02 K/uL (0.00-0.02); Immature Granulocytes % (auto) 0.2 %; Lymphocytes # (auto) 1.06 K/uL (1.2-3.4); Lymphocytes % (auto) 10.1 %; Mean Platelet Volume 11.7 fL (7.4-10.4); Monocytes # (auto) 0.37 K/uL (0.11-0.59); Monocytes % (auto) 3.5 %; Neutrophils # (auto) 9.01 K/uL (1.4-6.5); Neutrophils % (auto) 85.9 %; Platelet Count 96 K/uL (130-400); Platelet Estimate Decreased (Normal)
[2020-10-21] MEDS: FERROUS SULFATE 325 MG TAB PO SCH (08:20)
[2020-10-21] MEDS: SIMETHICONE 80 MG CHEW PO SCH ×4 (08:20→21:06)
[2020-10-21] MEDS: DOCUSATE SODIUM 100 MG CAP PO SCH ×2 (08:20→21:05)
[2020-10-21] MEDS ORDERED: ALBUTEROL HFA 8 GM INHALER INH PRN ×2 (08:42→09:05)
[2020-10-21] MEDS ORDERED: FLUTICASONE FUROATE 100MCG 14 PUFFS/INHALER INH SCH (09:00)
[2020-10-21] MEDS ORDERED: OPTIRAY 320 125ml IV ONE (09:12)
--- NOTE | 2020-10-21 09:34 | CT Scan Report ---
CT ANGIOGRAPHY OF THE CHEST, PULMONARY EMBOLUS PROTOCOL CLINICAL HISTORY: Shortness of breath. Postoperative day 1 status post section. Evaluate for pulmonary embolus. COMPARISON STUDY: No previous studies for comparison. TECHNIQUE: Following IV administration of Optiray-320, helical axial images of the chest were obtaine d utilizing the pulmonary embolus protocol. Maximal intensity projections and sagittal and coronal r eformats were viewed on an independent 3D workstation. IV contrast was administered without complica tion. Automated exposure control was utilized for the study. A dose lowering technique was utilized adhering to the principles of ALARA. CT DOSE: 496.12 mGy.cm FINDINGS: No pulmonary emboli are identified. There is no thoracic aortic dissection. Size of the he art is normal. There is no pericardial effusion. There is a possible 1.8 cm nodule arising from the i nferior aspect of the thyroid isthmus. No pneumothorax is present. There are trace bilateral pleural effusions. Groundglass opacities within the right lower lobe favor atelectasis. Lung volumes are mild ly diminished. Central airways are patent. There is no thoracic lymphadenopathy. Visualized portions of the upper abdomen demonstrate gastric distention. The stomach is fluid-filled. There is borderline hepatosplenomegaly. There may be hepatic steatosis. IMPRESSION: 1. No pulmonary emboli identified. 2. Trace bilateral pleural effusions. 3. Right lower lobe groundglass opacities which favor atelectasis. 4. Mildly distended, fluid-filled stomach. 5. Possible 1.8 cm thyroid nodule. Nonemergent thyroid ultrasound could be obtained. ACT 112: Negative or not required by law. Electronically signed by: Pedro Gomez M.D. 10/21/2020 9:33 AM
[2020-10-21 13:00] LABS: Hematocrit (blood only) 29.2 % (37-47); Hemoglobin 9.8 g/dL (12.0-16.0); Mean Corpuscular Hemoglobin 29.2 pg (25-34); Mean Corpuscular Hgb Conc 33.6 g/dL (32-36); Mean Corpuscular Volume 86.9 fL (80-100); Mean Platelet Volume 11.1 fL (7.4-10.4); Platelet Count 100 K/uL (130-400); RDW Coefficient of Variation 17.3 % (11.5-14.5); Red Blood Count 3.36 M/uL (4.2-5.4); White Blood Count 11.97 K/uL (4.8-10.8)
[2020-10-21 13:21] LABS: Albumin Globulin Ratio 0.5 (0.9-2); Albumin Level 1.7 gm/dl (3.4-5.0); BUN Creatinine Ratio 7.6 (10-20); Bilirubin,Total 0.4 mg/dl (0.2-1); Calcium 7.6 mg/dl (8.5-10.1); Creatinine Clr Calc Pharmacy 125.7 ml/min; Est GFR (African American) 123.5; Est GFR (Non-African American) 106.6; Globulin 3.2 gm/dl (2.5-4.0); Potassium 3.6 mmol/L (3.5-5.1); Total Protein 4.9 gm/dl (6.4-8.2)
--- NOTE | 2020-10-21 13:51 | Communication Note ---
Date of Service: October 21, 2020 Labs reviewed, Plts stable/increased and the Cr is normal. Vitals show improvement in her prior tachycardia. She had a CT that ruled out PE, does show mild atelectasis, and she has also revealed that she was using her asthma inhaler in her room (she had brought it from home). Likely her desaturations and tachy were from asthma and the inhaler, respectively.
[2020-10-21] MEDS: BECLOMETHASONE DIP HFA 40 MCG 8.7G INH INH SCH (14:37)
[2020-10-21] MEDS ORDERED: PROMETHAZINE HCL 25 MG in SODIUM CHLORIDE 0.9% 50 ML IV PRN (17:21)
[2020-10-21] MEDS ORDERED: diphenhydrAMINE Capsule 25 MG CAP PO PRN (17:21)
[2020-10-21] MEDS ORDERED: ONDANSETRON INJ 2 MG/ML 2 ML VIAL IV PRN (17:21)
[2020-10-21] MEDS ORDERED: diphenhydrAMINE 50 MG/ML VIAL IV PRN (17:21)
[2020-10-21] MEDS: oxyCODONE/ACETAMINOPHEN 5mg/325mg TAB PO PRN (21:07)
[2020-10-22] MEDS: IBUPROFEN 600 MG TAB PO PRN ×4 (02:08→20:17)
[2020-10-22] MEDS: oxyCODONE/ACETAMINOPHEN 5mg/325mg TAB PO PRN ×4 (02:09→20:18)
--- NOTE | 2020-10-22 05:35 | Obstetrical Progress Note ---
Date of Service <Holden Serrano MD - Last Filed: 10/22/20 07:05> October 22, 2020 Assessment & Plan <Holden Serrano MD - Last Filed: 10/22/20 07:05> (1) : A/P: Nava Arzola is a 25 y/o female on POD#2 s/p delivery at 40+5 weeks. * Patient feels well today; eating well, voiding well, ambulating well * Pain well-controlled with oxycodone/acetaminophen 2 tabs q4h prn * PNL: Rh pos, RI, GBS neg, COVID neg * Routine postcesarean care: OOB, ambulation, diet progression as tolerated * After discharge, will have six-week follow-up with Dr. Stephen Sol <Holden Serrano MD - Last Filed: 10/22/20 07:05> Nava Arzola is a 25 y/o female on POD#2 s/p delivery at 40+5 weeks. She reports feeling well overall this morning. Mild abdominal cramping and 3/10 pain well managed on analgesics. Voiding well. Tolerating meals overnight without difficulty. Patient has been able to ambulate some. + passing gas and + bowel movement. Has persistent lochia with some improvement this morning. Currently . Review of Systems Denies fever or chills. Denies shortness of breath or cough. Denies chest pain. Denies breast pain. Denies dysuria. Denies leg pain. Denies headache or changes in vision. Physical Exam <Holden Serrano MD - Last Filed: 10/22/20 07:05> General: alert, oriented, no acute distress Cardiac: regular rate and rhythm, no murmurs appreciated Respiratory: lungs clear to auscultation bilaterally a/p, no wheezes/rales/rhonchi, no increased work of breathing, symmetrical chest rise, no respiratory distress Abdomen: soft, minimally tender, nondistended, bowel sounds present, surgical incision clean, dry, and intact Uterus: uterine fundus firm, palpable 2cm above umbilicus per Dr. Jenkins Lower extremities: no lower extremity edema or swelling, no deep calf pain, Luz Marina's negative bilaterally Results & Data ([facility]) <Holden Serrano MD - Last Filed: 12/12/20 07:05> Vital Signs (Past 12 Hours) Vital Signs Temp Pulse Resp BP Pulse Ox 10/21/20 23:40 36.9 C 110 H 18 118/64 98 10/21/20 20:08 36.5 C 118 H 18 106/68 97 10/21/20 18:12 16 98 <Do Jenkins MD - Last Filed: 10/22/20 07:32> Co-Signing Physician Notes I have reviewed the resident's note and examined the patient myself, and agree with the note above. Resident Activity Tracking <Holden Serrano MD - Last Filed: 10/22/20 07:05> Resident Involvement: Resident Care Provided Care Provided: OB Delivery
[2020-10-22 06:31] LABS: Hematocrit (blood only) 28.9 % (37-47); Hemoglobin 9.4 g/dL (12.0-16.0)
[2020-10-22] MEDS: SIMETHICONE 80 MG CHEW PO SCH ×4 (08:29→20:10)
[2020-10-22] MEDS: DOCUSATE SODIUM 100 MG CAP PO SCH ×2 (08:29→20:10)
[2020-10-22] MEDS: FERROUS SULFATE 325 MG TAB PO SCH (08:29)
[2020-10-22] MEDS: BECLOMETHASONE DIP HFA 40 MCG 8.7G INH INH SCH (08:31)
[2020-10-23] MEDS: oxyCODONE/ACETAMINOPHEN 5mg/325mg TAB PO PRN ×2 (04:07→08:34)
[2020-10-23] MEDS: IBUPROFEN 600 MG TAB PO PRN ×2 (04:07→08:33)
--- NOTE | 2020-10-23 07:47 | Obstetrical Progress Note ---
Date of Service October 23, 2020 Assessment & Plan (1) : 25 yo POD3 from pLTCS for failure to descend and maternal exhaustion, doing well -Meeting all pp milestones -O+/rubella immune/ -f/u 6 weeks for appt, stable for d/c today Subjective Ambulation: ambulating normally Voiding: no voiding problems Passing Gas:: Yes Diet Tolerance:: regular diet Lochia:: Small Feeding Type:: breast feeding Pain well managed with medication Review of Systems Denies fevers, chills, n/v, SNYDER, CP, SOB Physical Exam Constitutional WD/WN, vitals as above no acute distress Respiratory normal respiratory effort, lungs clear to auscultation Cardiovascular RRR, no murmur, no edema Gastrointestinal (Abdomen) Inspection/Auscultation: + abdominal surgical scar (c/d/i) Percussion/Palpation: abdomen soft; abdomen nontender fundus firm at umbilicus and NT Musculoskeletal BLE symmetric, nonerythematous, nontender Results & Data ([facility]) Vital Signs (Past 12 Hours) Vital Signs Temp Pulse Resp BP Pulse Ox 10/23/20 00:05 97.5 F L 102 H 18 103/68 97 10/22/20 20:05 98.1 F 108 H 18 103/68 98
[2020-10-23] MEDS: DOCUSATE SODIUM 100 MG CAP PO SCH (08:34)
[2020-10-23] MEDS: FERROUS SULFATE 325 MG TAB PO SCH (08:34)
[2020-10-23] MEDS: SIMETHICONE 80 MG CHEW PO SCH (08:35)
== END 2020-10-23 09:28 | disposition home or self-care (01) ==
LOC: 4S1 07:29 → 4S2 10-21 02:26